=== PATIENT | male | born 1980 | race Caucasian/White ===

== ENCOUNTER 2017-09-30 20:11 | Inpatient (IN) | payer MEDICAID ==
[~2017-09-30] VITALS: Ht 175.3 cm; Wt 87.5 kg
[2017-09-30] MEDS ORDERED: RISP4 PO (20:23)
[2017-09-30 20:36] LABS: BASOPHILS % (AUTO) 0.4 % (0.0-2.0); EOSINOPHILS % (AUTO) 2.4 % (1.0-6.0); HEMATOCRIT 45.2 % (41-53); HEMOGLOBIN 15.7 g/dL (13.5-17.5); LYMPHOCYTES # (AUTO) 2.3 K/uL (1.0-4.8); LYMPHOCYTES % (AUTO) 36.3 % (22.0-44.0); MEAN CORPUSCULAR HEMOGLOBIN 30.2 pg (26.0-34.0); MEAN CORPUSCULAR HGB CONC 34.7 G/dL (31.0-37.0); MEAN CORPUSCULAR VOLUME 87 fL (80-100); MONOCYTES # (AUTO) 0.5 K/uL (0.1-1.0); NEUTROPHILS # (AUTO) 3.3 K/uL (1.8-7.7); NEUTROPHILS % (AUTO) 52.9 % (40.0-70.0); PLATELET COUNT (AUTO) 220 K/uL (150-450); RED BLOOD CELL COUNT(AUTO) 5.19 MIL/uL (4.50-5.90); RED CELL DISTRIBUTION WIDTH 12.6 % (11.5-14.5)
[2017-09-30 20:39] LABS: ANION GAP 6 mmol/L (8-16); CALCIUM, TOTAL 8.9 mg/dL (8.8-10.5); CARBON DIOXIDE 31 mmol/L (22-29); CHLORIDE 102 mmol/L (98-107); GLOMERULAR FILTR. RATE CALC > 60 mL/min (>60); GLUCOSE,RANDOM 212 mg/dL (70-110); SODIUM SERUM 139 mmol/L (136-145); UREA NITROGEN, BLOOD 19 mg/dL (7-18)
[2017-09-30 20:45] LABS: ALANINE AMINOTRANSFERASE 83 U/L (12-78); ALBUMIN 4.2 g/dL (3.4-5.0); ALKALINE PHOSPHATASE 73 U/L (46-116); ASPARTATE AMINOTRANSFERASE 32 U/L (15-37); BILIRUBIN,TOTAL 0.4 mg/dL (0.1-1.0); TOTAL PROTEIN, SERUM 7.8 g/dL (6.4-8.2)
[2017-09-30 21:09] LABS: CHOL/HDL RATIO 5.3 (4.2-7.3); CHOLESTEROL 137 mg/dL (131-200); FREE T4 (FREE THYROXINE) 1.04 ng/dL (0.76-1.46); HDL CHOLESTEROL 26 mg/dL (40-60); LDL CHOL (CALC.) 83 mg/dL (0-130); THYROID STIMULATING HORMONE 1.47 uIU/mL (0.36-3.74); TRIGLYCERIDES 140 mg/dL (15-150)
[2017-09-30] MEDS ORDERED: RisperiDONE 1 MG TABLET PO ONE (22:00)
[2017-09-30] MEDS ORDERED: DiphenhydrAMINE HCL 25 MG CAPSULE PO ONE (22:00)
[2017-10-01 01:57] LABS: AMPHET/METH SCREEN,URINE NEGATIVE (NEGATIVE); BARBITURATE SCREEN, URINE NEGATIVE (NEGATIVE); BENZODIAZEPINES SCREEN,URINE NEGATIVE (NEGATIVE); CANNABINOID SCREEN,URINE NEGATIVE (NEGATIVE); COCAINE SCREEN,URINE NEGATIVE (NEGATIVE); METHADONE SCREEN, URINE NEGATIVE (NEGATIVE); OPIATE SCREEN,URINE NEGATIVE (NEGATIVE); PHENCYCLIDINE SCREEN,URINE NEGATIVE (NEGATIVE)
[2017-10-01 13:37] LABS: GLUCOMETER DEV NAME(LOC) BV3N5; GLUCOSE,POINT OF CARE 247 MG/DL (70-110)
[2017-10-01] MEDS: LORazepam 2 MG TABLET PO PRN (13:40)
[2017-10-01 13:41] VITALS: BP 119/70
[2017-10-01] MEDS: INSULIN ASPART 100 UNITS/ML - NON-FORMULARY SQ PRN ×3 (14:13→21:06)
[2017-10-01] MEDS ORDERED: GLUCAGON,HUMAN RECOMBINANT 1 MG VIAL IM PRN (14:15)
[2017-10-01] MEDS ORDERED: PNEUMOCOCCAL VACCINE POLYVALENT 0.5 ML VIAL [PPSV23] IM ONE (15:00)
[2017-10-01] MEDS ORDERED: INFLUENZA VIRUS VACCINE QVS 2017-18 (3YR+)/PF 60 MCG/0.5 ML SYRINGE IM ONE (15:00)
[2017-10-01 16:57] LABS: GLUCOMETER DEV NAME(LOC) BV3N5; GLUCOSE,POINT OF CARE 187 MG/DL (70-110)
[2017-10-01 17:03] VITALS: BP 127/60
[2017-10-01 20:47] LABS: GLUCOMETER DEV NAME(LOC) BV3N5; GLUCOSE,POINT OF CARE 297 MG/DL (70-110)
[2017-10-01] MEDS: RisperiDONE 4 MG TABLET PO SCH (21:05)
[2017-10-02 06:18] LABS: GLUCOMETER DEV NAME(LOC) BV3N5; GLUCOSE,POINT OF CARE 163 MG/DL (70-110)
[2017-10-02] MEDS: INSULIN ASPART 100 UNITS/ML - NON-FORMULARY SQ PRN ×3 (06:29→16:49)
[2017-10-02 06:38] VITALS: BP 117/80
[2017-10-02 08:31] VITALS: BP 128/70
[2017-10-02] MEDS ORDERED: BACITRACIN 28.4 GM OINTMENT TP PRN (08:45)
[2017-10-02] MEDS ORDERED: ONDANSETRON HCL 4 MG TABLET PO PRN (08:45)
[2017-10-02] MEDS ORDERED: ACETAMINOPHEN 325 MG TABLET PO PRN (08:45)
[2017-10-02] MEDS ORDERED: IBUPROFEN 600 MG TABLET PO PRN (08:45)
[2017-10-02] MEDS ORDERED: LOPERAMIDE HCL 2 MG CAPSULE PO PRN (08:45)
[2017-10-02] MEDS ORDERED: MAG HYDROX/AL HYDROX/SIMETH ES 30 ML SUSPENSION UDCUP PO PRN (08:45)
[2017-10-02] MEDS ORDERED: BENZOCAINE/MENTHOL LOZENGE MM PRN (08:45)
[2017-10-02] MEDS ORDERED: ALBUTEROL SULFATE HFA 90 MCG/PUFF 8 GM INHALER IH PRN (08:45)
[2017-10-02] MEDS ORDERED: PETROLATUM,WHITE 71 GM JELLY TP PRN (08:45)
[2017-10-02] MEDS ORDERED: CloNIDine HCL 0.1 MG TABLET PO PRN (08:45)
[2017-10-02] MEDS ORDERED: MAGNESIUM HYDROXIDE SUSPENSION 30 ML UDCUP PO PRN (08:45)
[2017-10-02 11:43] LABS: GLUCOMETER DEV NAME(LOC) BV3N5; GLUCOSE,POINT OF CARE 182 MG/DL (70-110)
[2017-10-02 16:00] VITALS: BP 122/71
[2017-10-02] MEDS: HALOPERIDOL 5 MG TABLET PO PRN (16:48)
[2017-10-02] MEDS: LORazepam 2 MG TABLET PO PRN (16:48)
[2017-10-02] MEDS: MetFORMIN HCL 500 MG TABLET PO SCH (16:48)
[2017-10-02 17:18] LABS: GLUCOMETER DEV NAME(LOC) BV3N5; GLUCOSE,POINT OF CARE 188 MG/DL (70-110)
[2017-10-02] MEDS: ZOLPIDEM TARTRATE 10 MG TABLET PO PRN (20:49)
[2017-10-02] MEDS: RisperiDONE 4 MG TABLET PO SCH (20:49)
[2017-10-02 21:08] LABS: GLUCOMETER DEV NAME(LOC) BV3N5; GLUCOSE,POINT OF CARE 123 MG/DL (70-110)
[2017-10-03] MEDS: MetFORMIN HCL 500 MG TABLET PO SCH ×2 (06:16→16:47)
[2017-10-03] MEDS: INSULIN ASPART 100 UNITS/ML - NON-FORMULARY SQ PRN ×4 (06:17→20:48)
[2017-10-03 06:18] LABS: GLUCOMETER DEV NAME(LOC) BV3N5; GLUCOSE,POINT OF CARE 153 MG/DL (70-110)
[2017-10-03 06:19] VITALS: BP 135/85
[2017-10-03 08:08] VITALS: BP 130/73
[2017-10-03 12:02] LABS: GLUCOMETER DEV NAME(LOC) BV3N5; GLUCOSE,POINT OF CARE 154 MG/DL (70-110)
[2017-10-03 16:00] VITALS: BP 128/65
[2017-10-03] MEDS: LORazepam 2 MG TABLET PO PRN (16:47)
[2017-10-03] MEDS: HALOPERIDOL 5 MG TABLET PO PRN (16:47)
[2017-10-03 17:03] LABS: GLUCOMETER DEV NAME(LOC) BV3N5; GLUCOSE,POINT OF CARE 166 MG/DL (70-110)
[2017-10-03] MEDS: ZOLPIDEM TARTRATE 10 MG TABLET PO PRN (20:46)
[2017-10-03] MEDS: RisperiDONE 4 MG TABLET PO SCH (20:46)
[2017-10-03 21:03] LABS: GLUCOMETER DEV NAME(LOC) BV3N5; GLUCOSE,POINT OF CARE 187 MG/DL (70-110)
[2017-10-04] MEDS: MetFORMIN HCL 500 MG TABLET PO SCH ×2 (06:33→17:01)
[2017-10-04] MEDS: INSULIN ASPART 100 UNITS/ML - NON-FORMULARY SQ PRN ×2 (06:34→17:04)
[2017-10-04 06:38] LABS: GLUCOMETER DEV NAME(LOC) BV3N5; GLUCOSE,POINT OF CARE 146 MG/DL (70-110)
[2017-10-04 08:09] VITALS: BP 117/63
[2017-10-04 11:52] LABS: GLUCOMETER DEV NAME(LOC) BV3N5; GLUCOSE,POINT OF CARE 105 MG/DL (70-110)
[2017-10-04 16:00] VITALS: BP 120/71
[2017-10-04] MEDS: HALOPERIDOL 5 MG TABLET PO PRN (17:01)
[2017-10-04] MEDS: LORazepam 2 MG TABLET PO PRN (17:02)
[2017-10-04 18:08] LABS: GLUCOMETER DEV NAME(LOC) BV3N5; GLUCOSE,POINT OF CARE 182 MG/DL (70-110)
[2017-10-04] MEDS: RisperiDONE 4 MG TABLET PO SCH (21:11)
[2017-10-04] MEDS: ZOLPIDEM TARTRATE 10 MG TABLET PO PRN (21:11)
[2017-10-05 06:38] LABS: GLUCOMETER DEV NAME(LOC) BV3N5; GLUCOSE,POINT OF CARE 144 MG/DL (70-110)
[2017-10-05] MEDS: INSULIN ASPART 100 UNITS/ML - NON-FORMULARY SQ PRN (06:39)
[2017-10-05 06:43] VITALS: BP 107/68
[2017-10-05] MEDS: MetFORMIN HCL 500 MG TABLET PO SCH (07:01)
[2017-10-05 09:01] VITALS: BP 121/69
[2017-10-05 12:12] LABS: GLUCOMETER DEV NAME(LOC) BV3N5; GLUCOSE,POINT OF CARE 122 MG/DL (70-110)
[2017-10-05] MEDS ORDERED: METF500T4 PO (14:09)
== END 2017-10-05 14:55 | disposition home or self-care (01) | DRG 750 ==
LOC: EMS 20:15 → B3A 10-01 12:19
DX: F25.0 Schizoaffective disorder, bipolar type (principal); E11.65 Type 2 diabetes mellitus with hyperglycemia; F41.9 Anxiety disorder, unspecified; G47.00 Insomnia, unspecified; K59.00 Constipation, unspecified; Z71.41 Alcohol abuse counseling and surveillance of alcoholic; Z79.899 Other long term (current) drug therapy; Z91.14 Patient's other noncompliance with medication regimen; Z79.84 Long term (current) use of oral hypoglycemic drugs
CPT/HCPCS: 82962; 84439; 84443; 99285; G0480

== ENCOUNTER 2018-04-29 21:08 | Inpatient (IN) | payer MEDICAID ==
[~2018-04-29] VITALS: Ht 175.3 cm; Wt 86.0 kg
[~2018-04-29 21:08] MED LIST: METF-960 PO; RISP4 PO
[2018-04-29] MEDS ORDERED: LORazepam 2 MG TABLET PO ONE (22:00)
[2018-04-29] MEDS ORDERED: DiphenhydrAMINE HCL 25 MG CAPSULE PO ONE (22:00)
[2018-04-29] MEDS ORDERED: RisperiDONE 1 MG TABLET PO ONE (22:00)
[2018-04-29 22:12] LABS: AMPHET/METH SCREEN,URINE NEGATIVE (NEGATIVE); BARBITURATE SCREEN, URINE NEGATIVE (NEGATIVE); BENZODIAZEPINES SCREEN,URINE NEGATIVE (NEGATIVE); CANNABINOID SCREEN,URINE NEGATIVE (NEGATIVE); COCAINE SCREEN,URINE NEGATIVE (NEGATIVE); METHADONE SCREEN, URINE NEGATIVE (NEGATIVE); OPIATE SCREEN,URINE NEGATIVE (NEGATIVE)
[2018-04-29 22:14] LABS: PHENCYCLIDINE SCREEN,URINE NEGATIVE (NEGATIVE)
[2018-04-30 02:59] LABS: APPEARANCE,URINE CLEAR (CLEAR); BILIRUBIN,URINE NEGATIVE (NEGATIVE); GLUCOSE, URINE (UA) 500 mg/dL (NEGATIVE); KETONES,URINE NEGATIVE (NEGATIVE); LEUKOCYTE ESTERASE ,URINE NEGATIVE (NEGATIVE); NITRATE,URINE NEGATIVE (NEGATIVE); OCCULT BLOOD,URINE NEGATIVE (NEGATIVE); PH,URINE 6.5 (5.0-8.0); PROTEIN,URINE NEGATIVE (NEGATIVE); UROBILINOGEN,URINE 0.2 mg/dL (<=1.0)
[2018-04-30 03:39] LABS: RBC,URINE 0-2 /HPF (0-2)
[2018-04-30 03:40] LABS: BACTERIA,URINE None Seen /HPF (None Seen); MUCUS,URINE Few LPF (None Seen); SQUAMOUS EPITHELIAL CELL,UR None Seen /LPF (None Seen); WBC,URINE 0-2 /HPF (0-5)
[2018-04-30 18:04] VITALS: BP 115/66
[2018-04-30] MEDS ORDERED: BENZOCAINE/MENTHOL LOZENGE MM PRN (19:00)
[2018-04-30] MEDS ORDERED: GLUCAGON,HUMAN RECOMBINANT 1 MG VIAL IM PRN (19:00)
[2018-04-30] MEDS ORDERED: ALBUTEROL SULFATE HFA 90 MCG/PUFF 8 GM INHALER IH PRN (19:00)
[2018-04-30] MEDS ORDERED: LOPERAMIDE HCL 2 MG CAPSULE PO PRN (19:00)
[2018-04-30] MEDS ORDERED: MAG HYDROX/AL HYDROX/SIMETH ES 30 ML SUSPENSION UDCUP PO PRN (19:00)
[2018-04-30] MEDS ORDERED: BACITRACIN 28.4 GM OINTMENT TP PRN (19:00)
[2018-04-30] MEDS ORDERED: IBUPROFEN 600 MG TABLET PO PRN (19:00)
[2018-04-30] MEDS ORDERED: ACETAMINOPHEN 325 MG TABLET PO PRN (19:00)
[2018-04-30] MEDS ORDERED: MAGNESIUM HYDROXIDE SUSPENSION 30 ML UDCUP PO PRN (19:00)
[2018-04-30] MEDS ORDERED: ONDANSETRON HCL 4 MG TABLET PO PRN (19:00)
[2018-04-30] MEDS ORDERED: PETROLATUM,WHITE 71 GM JELLY TP PRN (19:00)
[2018-04-30] MEDS ORDERED: CloNIDine HCL 0.1 MG TABLET PO PRN (19:00)
[2018-04-30] MEDS: ZOLPIDEM TARTRATE 10 MG TABLET PO PRN (20:36)
[2018-04-30] MEDS: LORazepam 2 MG TABLET PO PRN (20:36)
[2018-05-01 05:43] VITALS: BP 125/76
[2018-05-01] MEDS: MetFORMIN HCL 500 MG TABLET PO SCH ×2 (06:47→16:23)
[2018-05-01] MEDS: INSULIN LISPRO 100 UNITS/ML SQ PRN ×3 (06:49→21:00)
[2018-05-01] MEDS ORDERED: MetFORMIN HCL 500 MG TABLET PO SCH (07:00)
[2018-05-01 08:03] VITALS: BP 109/64
[2018-05-01] MEDS: RisperiDONE 3 MG TABLET PO SCH ×2 (08:19→16:23)
[2018-05-01] MEDS: OMEPRAZOLE 20 MG CAPSULE PO SCH (08:19)
[2018-05-01] MEDS: DOCUSATE SODIUM 100 MG CAPSULE PO SCH (08:19)
[2018-05-01 08:21] LABS: BASOPHILS % (AUTO) 0.5 % (0.0-2.0); EOSINOPHILS % (AUTO) 1.8 % (1.0-6.0); HEMATOCRIT 45.7 % (41-53); HEMOGLOBIN 15.9 g/dL (13.5-17.5); LYMPHOCYTES # (AUTO) 1.5 K/uL (1.0-4.8); LYMPHOCYTES % (AUTO) 29.8 % (22.0-44.0); MEAN CORPUSCULAR HEMOGLOBIN 30.3 pg (26.0-34.0); MEAN CORPUSCULAR HGB CONC 34.8 G/dL (31.0-37.0); MEAN CORPUSCULAR VOLUME 87 fL (80-100); MONOCYTES # (AUTO) 0.3 K/uL (0.1-1.0); MONOCYTES % (AUTO) 6.7 % (2.0-9.0); NEUTROPHILS # (AUTO) 3.1 K/uL (1.8-7.7); NEUTROPHILS % (AUTO) 61.2 % (40.0-70.0); PLATELET COUNT (AUTO) 208 K/uL (150-450); RED BLOOD CELL COUNT(AUTO) 5.23 MIL/uL (4.50-5.90); RED CELL DISTRIBUTION WIDTH 12.9 % (11.5-14.5)
[2018-05-01 09:05] LABS: ALANINE AMINOTRANSFERASE 117 U/L (12-78); ALKALINE PHOSPHATASE 67 U/L (46-116); ANION GAP 5 mmol/L (8-16); ASPARTATE AMINOTRANSFERASE 40 U/L (15-37); BILIRUBIN,TOTAL 0.7 mg/dL (0.1-1.0); CARBON DIOXIDE 30 mmol/L (22-29); CHLORIDE 101 mmol/L (98-107); CHOL/HDL RATIO 4.7 (4.2-7.3); CHOLESTEROL 147 mg/dL (131-200); CREATININE 0.79 mg/dL (0.60-1.30); FREE T4 (FREE THYROXINE) 0.98 ng/dL (0.76-1.46); GLOMERULAR FILTR. RATE CALC > 60 mL/min (>60); GLUCOSE,RANDOM 261 mg/dL (70-110); HDL CHOLESTEROL 31 mg/dL (40-60); LDL CHOL (CALC.) 87 mg/dL (0-130); POTASSIUM 3.8 mmol/L (3.5-5.1); SODIUM SERUM 136 mmol/L (136-145); THYROID STIMULATING HORMONE 1.52 uIU/mL (0.36-3.74); TOTAL PROTEIN, SERUM 7.7 g/dL (6.4-8.2); TRIGLYCERIDES 144 mg/dL (15-150); UREA NITROGEN, BLOOD 17 mg/dL (7-18)
[2018-05-01 11:32] LABS: GLUCOMETER DEV NAME(LOC) BV3N5; GLUCOSE,POINT OF CARE 246 MG/DL (70-110)
[2018-05-01 11:32] LABS: GLUCOMETER DEV NAME(LOC) BV3N5; GLUCOSE,POINT OF CARE 206 MG/DL (70-110)
[2018-05-01 16:02] VITALS: BP 121/76
[2018-05-01] MEDS: LORazepam 2 MG TABLET PO PRN (16:23)
[2018-05-01] MEDS: HALOPERIDOL 5 MG TABLET PO PRN (16:23)
[2018-05-01 16:28] LABS: GLUCOMETER DEV NAME(LOC) BV3N5; GLUCOSE,POINT OF CARE 129 MG/DL (70-110)
[2018-05-01] MEDS: ZOLPIDEM TARTRATE 10 MG TABLET PO PRN (20:25)
[2018-05-01 20:54] LABS: GLUCOMETER DEV NAME(LOC) BV3N5; GLUCOSE,POINT OF CARE 195 MG/DL (70-110)
[2018-05-02] MEDS: MetFORMIN HCL 500 MG TABLET PO SCH ×2 (06:34→16:49)
[2018-05-02 06:42] VITALS: BP 117/74
[2018-05-02 07:04] LABS: GLUCOMETER DEV NAME(LOC) BV3N5; GLUCOSE,POINT OF CARE 147 MG/DL (70-110)
[2018-05-02 08:05] VITALS: BP 128/61
[2018-05-02] MEDS: RisperiDONE 3 MG TABLET PO SCH ×2 (08:25→16:49)
[2018-05-02] MEDS: OMEPRAZOLE 20 MG CAPSULE PO SCH (08:25)
[2018-05-02] MEDS: DOCUSATE SODIUM 100 MG CAPSULE PO SCH (08:26)
[2018-05-02] MEDS: INSULIN LISPRO 100 UNITS/ML SQ PRN ×2 (11:56→16:57)
[2018-05-02 12:00] LABS: GLUCOMETER DEV NAME(LOC) BV3N5; GLUCOSE,POINT OF CARE 201 MG/DL (70-110)
[2018-05-02 16:00] VITALS: BP 106/68
[2018-05-02 16:44] LABS: GLUCOMETER DEV NAME(LOC) BV3N5; GLUCOSE,POINT OF CARE 157 MG/DL (70-110)
[2018-05-02] MEDS: HALOPERIDOL 5 MG TABLET PO PRN (16:49)
[2018-05-02] MEDS: LORazepam 2 MG TABLET PO PRN (16:49)
[2018-05-03 06:14] VITALS: BP 118/78
[2018-05-03 06:25] LABS: GLUCOMETER DEV NAME(LOC) BV3N5; GLUCOSE,POINT OF CARE 153 MG/DL (70-110)
[2018-05-03] MEDS: MetFORMIN HCL 500 MG TABLET PO SCH ×2 (06:31→16:37)
[2018-05-03] MEDS: INSULIN LISPRO 100 UNITS/ML SQ PRN ×4 (06:31→21:00)
[2018-05-03 08:05] VITALS: BP 108/62
[2018-05-03] MEDS: RisperiDONE 3 MG TABLET PO SCH ×2 (08:17→16:37)
[2018-05-03] MEDS: DOCUSATE SODIUM 100 MG CAPSULE PO SCH (08:17)
[2018-05-03] MEDS: OMEPRAZOLE 20 MG CAPSULE PO SCH (08:17)
[2018-05-03] MEDS: HALOPERIDOL 5 MG TABLET PO PRN ×2 (09:49→16:37)
[2018-05-03] MEDS: LORazepam 2 MG TABLET PO PRN ×2 (09:49→16:37)
[2018-05-03 11:44] LABS: GLUCOMETER DEV NAME(LOC) BV3N5; GLUCOSE,POINT OF CARE 177 MG/DL (70-110)
[2018-05-03 17:24] VITALS: BP 115/65
[2018-05-03 17:40] LABS: GLUCOMETER DEV NAME(LOC) BV3N5; GLUCOSE,POINT OF CARE 174 MG/DL (70-110)
[2018-05-03] MEDS: ZOLPIDEM TARTRATE 10 MG TABLET PO PRN (20:22)
[2018-05-04 00:45] LABS: GLUCOMETER DEV NAME(LOC) BV3N5; GLUCOSE,POINT OF CARE 177 MG/DL (70-110)
[2018-05-04] MEDS: MetFORMIN HCL 500 MG TABLET PO SCH (06:15)
[2018-05-04 06:24] VITALS: BP 122/70
[2018-05-04] MEDS: INSULIN LISPRO 100 UNITS/ML SQ PRN ×2 (06:44→11:32)
[2018-05-04 08:03] VITALS: BP 122/77
[2018-05-04] MEDS: RisperiDONE 3 MG TABLET PO SCH (08:10)
[2018-05-04] MEDS: OMEPRAZOLE 20 MG CAPSULE PO SCH (08:10)
[2018-05-04] MEDS: DOCUSATE SODIUM 100 MG CAPSULE PO SCH (08:10)
[2018-05-04] MEDS ORDERED: RISP3 PO (13:01)
[2018-05-04 13:02] LABS: GLUCOMETER DEV NAME(LOC) BV3N5; GLUCOSE,POINT OF CARE 152 MG/DL (70-110)
[2018-05-04 22:09] LABS: GLUCOMETER DEV NAME(LOC) BV3N5; GLUCOSE,POINT OF CARE 177 MG/DL (70-110)
== END 2018-05-04 13:15 | disposition home or self-care (01) | DRG 750 ==
LOC: EMS 21:09 → B3A 04-30 15:16
PROVIDERS: ADMIT Psychiatry & Neurology Psychiatry; ATTEND Psychiatry & Neurology Psychiatry
PROC: 3E0334Z Introduction of Serum, Toxoid and Vaccine into Peripheral Vein, Percutaneous Approach (ICD-10-PCS; principal; 2018-05-01)
DX: F20.9 Schizophrenia, unspecified (principal); E11.65 Type 2 diabetes mellitus with hyperglycemia; F41.9 Anxiety disorder, unspecified; G47.00 Insomnia, unspecified; K59.00 Constipation, unspecified; Z79.899 Other long term (current) drug therapy; Z23 Encounter for immunization
CPT/HCPCS: 83036; 84439; 84443; 90686; 99285

== ENCOUNTER 2019-01-13 20:02 | Inpatient (IN) | payer MEDICAID ==
[~2019-01-13] VITALS: Ht 172.7 cm; Wt 82.1 kg
[~2019-01-13 20:02] MED LIST changes: +RISP3 PO; -RISP4 PO
[2019-01-13 20:31] LABS: BASOPHILS % (AUTO) 0.4 % (0.0-2.0); HEMATOCRIT 47.4 % (41-53); HEMOGLOBIN 16.4 g/dL (13.5-17.5); LYMPHOCYTES # (AUTO) 1.9 K/uL (1.0-4.8); LYMPHOCYTES % (AUTO) 28.6 % (22.0-44.0); MEAN CORPUSCULAR HGB CONC 34.5 G/dL (31.0-37.0); MEAN CORPUSCULAR VOLUME 87 fL (80-100); MONOCYTES # (AUTO) 0.5 K/uL (0.1-1.0); MONOCYTES % (AUTO) 7.8 % (2.0-9.0); NEUTROPHILS % (AUTO) 62.2 % (40.0-70.0); PLATELET COUNT (AUTO) 234 K/uL (150-450); RED BLOOD CELL COUNT(AUTO) 5.46 MIL/uL (4.50-5.90)
[2019-01-13 20:42] LABS: ANION GAP 8 mmol/L (8-16); CALCIUM, TOTAL 9.1 mg/dL (8.8-10.5); CARBON DIOXIDE 29 mmol/L (22-29); CHLORIDE 101 mmol/L (98-107); CREATININE 0.97 mg/dL (0.60-1.30); GLOMERULAR FILTR. RATE CALC > 60 mL/min (>60); GLUCOSE,RANDOM 291 mg/dL (70-110); POTASSIUM 4.4 mmol/L (3.5-5.1); SODIUM SERUM 138 mmol/L (136-145); UREA NITROGEN, BLOOD 19 mg/dL (7-18)
[2019-01-13 20:48] LABS: ALANINE AMINOTRANSFERASE 145 U/L (12-78); ALBUMIN 4.3 g/dL (3.4-5.0); ALKALINE PHOSPHATASE 79 U/L (46-116); ASPARTATE AMINOTRANSFERASE 44 U/L (15-37); BILIRUBIN,TOTAL 0.7 mg/dL (0.1-1.0)
[2019-01-13 22:39] LABS: AMPHET/METH SCREEN,URINE NEGATIVE (NEGATIVE); BARBITURATE SCREEN, URINE NEGATIVE (NEGATIVE); BENZODIAZEPINES SCREEN,URINE NEGATIVE (NEGATIVE); CANNABINOID SCREEN,URINE NEGATIVE (NEGATIVE); COCAINE SCREEN,URINE NEGATIVE (NEGATIVE); METHADONE SCREEN, URINE NEGATIVE (NEGATIVE); OPIATE SCREEN,URINE NEGATIVE (NEGATIVE)
[2019-01-13 22:41] LABS: PHENCYCLIDINE SCREEN,URINE NEGATIVE (NEGATIVE)
[2019-01-14] MEDS ORDERED: LORazepam 2 MG TABLET PO PRN (00:30)
[2019-01-14] MEDS ORDERED: ZOLPIDEM TARTRATE 10 MG TABLET PO PRN (00:30)
[2019-01-14] MEDS ORDERED: HALOPERIDOL 5 MG TABLET PO PRN (00:30)
[2019-01-14 04:26] VITALS: BP 138/73
[2019-01-14 05:49] LABS: GLUCOMETER DEV NAME(LOC) 3E.I; GLUCOSE,POINT OF CARE 340 MG/DL (70-110)
[2019-01-14] MEDS ORDERED: ALBUTEROL SULFATE HFA 90 MCG/PUFF 8 GM INHALER IH PRN (06:00)
[2019-01-14] MEDS ORDERED: LOPERAMIDE HCL 2 MG CAPSULE PO PRN (06:00)
[2019-01-14] MEDS ORDERED: DOCUSATE SODIUM 100 MG CAPSULE PO PRN (06:00)
[2019-01-14] MEDS ORDERED: IBUPROFEN 400 MG TABLET PO PRN (06:00)
[2019-01-14] MEDS ORDERED: PETROLATUM,WHITE 28 GM JELLY TP PRN (06:00)
[2019-01-14] MEDS ORDERED: GuaiFENesin/D-METHORPHAN [SUGAR-FREE] 200-20MG/10 ML SYRUP UDCUP PO PRN (06:00)
[2019-01-14] MEDS ORDERED: MAGNESIUM HYDROXIDE SUSPENSION 30 ML UDCUP PO PRN (06:00)
[2019-01-14] MEDS ORDERED: ONDANSETRON HCL 4 MG TABLET PO PRN (06:00)
[2019-01-14] MEDS ORDERED: ACETAMINOPHEN 325 MG TABLET PO PRN (06:00)
[2019-01-14] MEDS ORDERED: CloNIDine HCL 0.1 MG TABLET PO PRN (06:00)
[2019-01-14] MEDS ORDERED: NICOTINE 14 MG/24 HOUR PATCH TD PRN (06:00)
[2019-01-14] MEDS ORDERED: MAG HYDROX/AL HYDROX/SIMETH ES 30 ML SUSPENSION UDCUP PO PRN (06:00)
[2019-01-14 06:30] LABS: APPEARANCE,URINE CLEAR (CLEAR); BILIRUBIN,URINE NEGATIVE (NEGATIVE); GLUCOSE, URINE (UA) >=1000 mg/dL (NEGATIVE); KETONES,URINE TRACE mg/dL (NEGATIVE); LEUKOCYTE ESTERASE ,URINE NEGATIVE (NEGATIVE); NITRATE,URINE NEGATIVE (NEGATIVE); OCCULT BLOOD,URINE NEGATIVE (NEGATIVE); PROTEIN,URINE NEGATIVE (NEGATIVE)
[2019-01-14 06:37] LABS: BACTERIA,URINE None Seen /HPF (None Seen); RBC,URINE None Seen /HPF (0-2); WBC,URINE None Seen /HPF (0-5)
[2019-01-14] MEDS ORDERED: PNEUMOCOCCAL VACCINE POLYVALENT 0.5 ML VIAL [PPSV23] IM ONE (07:15)
[2019-01-14] MEDS: MetFORMIN HCL 500 MG TABLET PO SCH ×2 (07:42→17:22)
[2019-01-14 08:00] VITALS: BP 118/74
[2019-01-14] MEDS ORDERED: DEXTROSE 50%-WATER 25 GM/50 ML SYRINGE IVP PRN (14:15)
[2019-01-14] MEDS: SERTRALINE HCL 50 MG TABLET PO SCH (14:24)
[2019-01-14] MEDS: RisperiDONE 2 MG TABLET PO SCH ×3 (14:24→20:24)
[2019-01-14 16:24] LABS: GLUCOMETER DEV NAME(LOC) 3EX.; GLUCOSE,POINT OF CARE 240 MG/DL (70-110)
[2019-01-14 16:45] VITALS: BP 113/64
[2019-01-14] MEDS: INSULIN LISPRO 100 UNITS/ML SQ PRN (16:59)
[2019-01-15 05:46] LABS: GLUCOMETER DEV NAME(LOC) 3E.I; GLUCOSE,POINT OF CARE 208 MG/DL (70-110)
[2019-01-15 06:08] LABS: BASOPHILS % (AUTO) 0.4 % (0.0-2.0); EOSINOPHILS % (AUTO) 1.8 % (1.0-6.0); HEMOGLOBIN 16.1 g/dL (13.5-17.5); LYMPHOCYTES # (AUTO) 1.7 K/uL (1.0-4.8); LYMPHOCYTES % (AUTO) 28.3 % (22.0-44.0); MEAN CORPUSCULAR HEMOGLOBIN 30.2 pg (26.0-34.0); MEAN CORPUSCULAR HGB CONC 34.2 G/dL (31.0-37.0); MEAN CORPUSCULAR VOLUME 88 fL (80-100); MONOCYTES # (AUTO) 0.4 K/uL (0.1-1.0); NEUTROPHILS # (AUTO) 3.6 K/uL (1.8-7.7); NEUTROPHILS % (AUTO) 62.5 % (40.0-70.0); PLATELET COUNT (AUTO) 210 K/uL (150-450); RED BLOOD CELL COUNT(AUTO) 5.32 MIL/uL (4.50-5.90); RED CELL DISTRIBUTION WIDTH 13.2 % (11.5-14.5)
[2019-01-15 06:18] LABS: HEMOGLOBIN A1C 9.2 % (4.5-6.2)
[2019-01-15] MEDS: MetFORMIN HCL 500 MG TABLET PO SCH ×2 (06:35→17:04)
[2019-01-15 06:37] LABS: ALANINE AMINOTRANSFERASE 129 U/L (12-78); ALKALINE PHOSPHATASE 70 U/L (46-116); ANION GAP 5 mmol/L (8-16); ASPARTATE AMINOTRANSFERASE 41 U/L (15-37); BILIRUBIN,TOTAL 1.1 mg/dL (0.1-1.0); CALCIUM, TOTAL 9.1 mg/dL (8.8-10.5); CARBON DIOXIDE 31 mmol/L (22-29); CHLORIDE 103 mmol/L (98-107); CHOL/HDL RATIO 5.9 (4.2-7.3); CHOLESTEROL 171 mg/dL (131-200); CREATININE 0.81 mg/dL (0.60-1.30); GLOMERULAR FILTR. RATE CALC > 60 mL/min (>60); GLUCOSE,RANDOM 216 mg/dL (70-110); HDL CHOLESTEROL 29 mg/dL (40-60); LDL CHOL (CALC.) 114 mg/dL (0-130); SODIUM SERUM 139 mmol/L (136-145); THYROID STIMULATING HORMONE 1.53 uIU/mL (0.36-3.74); TOTAL PROTEIN, SERUM 7.2 g/dL (6.4-8.2); TRIGLYCERIDES 139 mg/dL (15-150); UREA NITROGEN, BLOOD 27 mg/dL (7-18)
[2019-01-15] MEDS: INSULIN LISPRO 100 UNITS/ML SQ PRN ×4 (06:50→21:22)
[2019-01-15] MEDS: RisperiDONE 2 MG TABLET PO SCH ×2 (07:53→20:39)
[2019-01-15] MEDS: SERTRALINE HCL 50 MG TABLET PO SCH (07:53)
[2019-01-15 11:55] LABS: GLUCOMETER DEV NAME(LOC) 3E.I; GLUCOSE,POINT OF CARE 222 MG/DL (70-110)
[2019-01-15 12:53] VITALS: BP 130/81
[2019-01-15 16:45] VITALS: BP 105/65
[2019-01-15 17:09] LABS: GLUCOMETER DEV NAME(LOC) 3EX.; GLUCOSE,POINT OF CARE 248 MG/DL (70-110)
[2019-01-15 20:55] LABS: GLUCOMETER DEV NAME(LOC) 3EX.; GLUCOSE,POINT OF CARE 155 MG/DL (70-110)
[2019-01-16 06:14] LABS: GLUCOMETER DEV NAME(LOC) 3E.I; GLUCOSE,POINT OF CARE 153 MG/DL (70-110)
[2019-01-16] MEDS: INSULIN LISPRO 100 UNITS/ML SQ PRN ×4 (06:34→20:46)
[2019-01-16] MEDS: MetFORMIN HCL 500 MG TABLET PO SCH ×2 (06:34→17:04)
[2019-01-16 08:45] VITALS: BP 118/73
[2019-01-16] MEDS: RisperiDONE 2 MG TABLET PO SCH (08:50)
[2019-01-16] MEDS: SERTRALINE HCL 50 MG TABLET PO SCH (08:50)
[2019-01-16 11:24] LABS: GLUCOMETER DEV NAME(LOC) 3EX.; GLUCOSE,POINT OF CARE 216 MG/DL (70-110)
[2019-01-16 17:10] LABS: GLUCOMETER DEV NAME(LOC) 3EX.; GLUCOSE,POINT OF CARE 152 MG/DL (70-110)
[2019-01-16 17:37] VITALS: BP 126/77
[2019-01-16] MEDS: RisperiDONE 3 MG TABLET PO SCH (20:30)
[2019-01-16 21:04] LABS: GLUCOMETER DEV NAME(LOC) 3EX.; GLUCOSE,POINT OF CARE 147 MG/DL (70-110)
[2019-01-17 05:25] LABS: GLUCOMETER DEV NAME(LOC) 3E.I; GLUCOSE,POINT OF CARE 141 MG/DL (70-110)
[2019-01-17] MEDS: INSULIN LISPRO 100 UNITS/ML SQ PRN ×2 (05:30→12:47)
[2019-01-17] MEDS: MetFORMIN HCL 500 MG TABLET PO SCH ×2 (06:28→17:10)
[2019-01-17] MEDS: RisperiDONE 3 MG TABLET PO SCH ×2 (07:58→20:03)
[2019-01-17] MEDS: SERTRALINE HCL 50 MG TABLET PO SCH (07:58)
[2019-01-17 08:15] VITALS: BP 113/72
[2019-01-17 11:19] LABS: GLUCOMETER DEV NAME(LOC) 3EX.; GLUCOSE,POINT OF CARE 150 MG/DL (70-110)
[2019-01-17 18:06] VITALS: BP 101/58
[2019-01-17 20:08] LABS: GLUCOMETER DEV NAME(LOC) 3EX.; GLUCOSE,POINT OF CARE 126 MG/DL (70-110)
[2019-01-17 20:28] LABS: GLUCOMETER DEV NAME(LOC) 3E.C; GLUCOSE,POINT OF CARE 105 MG/DL (70-110)
[2019-01-18 06:14] LABS: GLUCOMETER DEV NAME(LOC) 3E.I; GLUCOSE,POINT OF CARE 106 MG/DL (70-110)
[2019-01-18] MEDS: MetFORMIN HCL 500 MG TABLET PO SCH ×2 (06:48→17:38)
[2019-01-18] MEDS: INSULIN LISPRO 100 UNITS/ML SQ PRN ×2 (06:53→17:47)
[2019-01-18 08:12] VITALS: BP 106/68
[2019-01-18] MEDS: SERTRALINE HCL 50 MG TABLET PO SCH (08:38)
[2019-01-18] MEDS: RisperiDONE 3 MG TABLET PO SCH ×2 (08:38→20:09)
[2019-01-18 11:09] LABS: GLUCOMETER DEV NAME(LOC) 3EX.; GLUCOSE,POINT OF CARE 120 MG/DL (70-110)
[2019-01-18 16:10] VITALS: BP 111/68
[2019-01-18 16:44] LABS: GLUCOMETER DEV NAME(LOC) 3EX.; GLUCOSE,POINT OF CARE 157 MG/DL (70-110)
[2019-01-18 20:44] LABS: GLUCOMETER DEV NAME(LOC) 3EX.; GLUCOSE,POINT OF CARE 119 MG/DL (70-110)
[2019-01-19 05:24] LABS: GLUCOMETER DEV NAME(LOC) 3E.I; GLUCOSE,POINT OF CARE 106 MG/DL (70-110)
[2019-01-19] MEDS: MetFORMIN HCL 500 MG TABLET PO SCH (06:56)
[2019-01-19 08:00] VITALS: BP 103/55
[2019-01-19] MEDS: SERTRALINE HCL 50 MG TABLET PO SCH (08:57)
[2019-01-19] MEDS: RisperiDONE 3 MG TABLET PO SCH (08:57)
[2019-01-19] MEDS ORDERED: SERT50TA12 PO ×2 (10:04→10:05)
[2019-01-19] MEDS ORDERED: RISP3 PO ×2 (10:04→10:05)
[2019-01-19] MEDS: INSULIN LISPRO 100 UNITS/ML SQ PRN (11:21)
[2019-01-19 11:24] LABS: GLUCOMETER DEV NAME(LOC) 3EX.; GLUCOSE,POINT OF CARE 122 MG/DL (70-110)
== END 2019-01-19 14:00 | disposition home or self-care (01) | DRG 750 ==
LOC: EMS 20:04 → 3EX 01-14 03:25
DX: F20.0 Paranoid schizophrenia (principal); E11.9 Type 2 diabetes mellitus without complications; F10.10 Alcohol abuse, uncomplicated; Z79.899 Other long term (current) drug therapy; R74.0 Nonspecific elevation of levels of transaminase and lactic acid dehydrogenase [LDH]; F19.10 Other psychoactive substance abuse, uncomplicated; Z71.41 Alcohol abuse counseling and surveillance of alcoholic; Z71.51 Drug abuse counseling and surveillance of drug abuser
CPT/HCPCS: 83036; 84443; G0378; G0480